=== PATIENT | female | born 1985 | race Caucasian/White ===

== ENCOUNTER 2016-06-09 16:36 | Emergency (ER) | payer OTHER ==
--- NOTE | 2016-06-09 19:00 | ED NURSING NOTES ---
Clinical Report - Nurses [facility] [address] [place] [address] 06/09/2016 16:36 Patient: MANAS HERNANDEZ TRIAGE Triage time 1720. Acuity: LEVEL 4. Chief Complaint: BOIL. Alert. No acute distress. (eating gummy bears). --17:30 Leslie Cody 17:25 06/09/16. BP: 150/96. HR: 108. RR: 18. O2 saturation: 100%. Temp: 98.3 F. Pain level now 03/09. --17:30 Leslie Cody. Weight: 68 kg. Height/Length: 64 inches. BMI: 25.8. --17:24 Leslie Cody. Medications None. --17:27 Leslie Cody. Allergies No Known Drug Allergy. --17:27 Leslie Cody. History Arrived by private vehicle. Historian: patient. Accompanied by family. Reported as (right ac). Onset. (3 days ago). ( shot up with meth, sts 2 weeks ago last use, in [facility]hab program). SOCIAL HX: Current every day light tobacco smoker, start date 2011 (cigarette)- less than 1/2 a pack per day. History of drug use: methamphetamines, marijuana. Recently used drugs days ago. (14). --17:30 Leslie Cody. PROBLEMS: Substance Abuse. --17:27 Leslie Cody. ADDITIONAL SURGERIES: Cholecystectomy. Dilatation & Curettage. Laparoscopy. --17:27 Leslie Cody. Interventions ID band on patient. To treatment room. --17:30 Leslie Cody. PHYSICAL ASSESSMENT Ambulatory to room. GENERAL / NEURO / PSYCH: Alert. She appears agitated. Oriented X 4. HEENT: Mucous membranes are pink. RESPIRATORY: Respirations not labored. Breath sounds within normal limits. CVS: Capillary refill less than 2 seconds. Pulses within normal limits. GI / : Abdomen nontender. SKIN: Skin is warm. Skin tenderness present. Increased warmth present. Erythema present. --17:31 Leslie Cody. NURSING PROGRESS NOTES 18:18 06/09/2016 Percocet (Oxycodone-Acetaminophen) PO 5/325 mg Tablets 2 tab given. Allergies verified, confirmed 5 rights and sedative warning given to the patient. --18:18 Leslie Cody 19:02 06/09/2016 Keflex (Cephalexin) PO 500 mg given. Allergies verified and confirmed 5 rights. --19:02 Leslie Cody 19:03 06/09/2016 Bactrim DS (Sulfamethoxazole-TMP DS) PO 1 tab given. Allergies verified and confirmed 5 rights. --19:03 Leslie Cody 19:18. Care transferred and report received. --19:18 Gael Bar R.N. 19:24. The patient is calm and resting quietly. RESPIRATORY: No respiratory distress. SKIN: Skin is warm and dry. Skin color within normal limits. --19:29 Gael Bar R.N. DISPOSITION / DISCHARGE Departure time: 19:26. Condition at departure: stable. No learning barriers present. Discharge instructions provided and reviewed with furniture dipper and the patient. Reviewed medication(s) side effects, precautions, dosing and course information. Prescription(s) given to the patient. Patient verbalized understanding. Written instructions provided in Pashto. The patient was discharged home and accompanied by furniture dipper. She left the Emergency Department ambulatory and via private vehicle. Occupational Therapy Technician driving. FALL RISK ASSESSMENT: Fall risk assessment completed. No fall risk identified. --19:28 Gael Bar R.N. 19:27 06/09/16. BP: 112/85. HR: 94. RR: 16. O2 saturation: 100% on room air. Pain level now: 11/07. --19:28 Gael Bar R.N. Locked/Released at 06/09/2016 19:29 by Gael Bar R.N.
--- NOTE | 2016-06-09 19:00 | ED ORDER SUMMARY ---
..... Patient: MANAS HERNANDEZ OrderSheet [facility] VisitID: [id number] [place] [address] 31y, F Registration Date/Time: 06/09/2016 ORDER SHEET Weight: 68.0 kg Allergies: No Known Drug Allergy GENERAL ORDERS: MEDICATION ORDERS: Percocet PO 2 tabs (HIGH ALERT MEDICATION, NOW) (18:13 06/09/2016 Padmini Garcia) [facility] Keflex PO 500 mg (NOW) (18:55 06/09/2016 Padmini Garcia) (19:02 [facility] Bactrim DS PO (Tablet 800-160 mg) 1 tab (NOW) (18:56 06/09/2016 Padmini Garcia) (19:03 [facility] IV FLUIDS: ORDER SHEET NOTES: [Electronically signed by Gael Bar R.N. (19:29 06/09/2016)] [Electronically signed by Ean Palmer Dr. (03:40 06/11/2016)] [Electronically locked/signed by Gael Bar R.N. (19:29 06/09/2016)]
--- NOTE | 2016-06-09 19:00 | ED NURSING NOTES ---
Clinical Report - Nurses [facility] [address] [place] [address] 06/09/2016 16:36 Patient: MANAS HERNANDEZ TRIAGE Triage time 1720. Acuity: LEVEL 4. Chief Complaint: BOIL. Alert. No acute distress. (eating gummy bears). --17:30 Leslie Cody 17:25 06/09/16. BP: 150/96. HR: 108. RR: 18. O2 saturation: 100%. Temp: 98.3 F. Pain level now 03/09. --17:30 Leslie Cody. Weight: 68 kg. Height/Length: 64 inches. BMI: 25.8. --17:24 Leslie Cody. Medications None. --17:27 Leslie Cody. Allergies No Known Drug Allergy. --17:27 Leslie Cody. History Arrived by private vehicle. Historian: patient. Accompanied by family. Reported as (right ac). Onset. (3 days ago). ( shot up with meth, sts 2 weeks ago last use, in [facility] based rehab program). SOCIAL HX: Current every day light tobacco smoker, start date 2011 (cigarette)- less than 1/2 a pack per day. History of drug use: methamphetamines, marijuana. Recently used drugs days ago. (14). --17:30 Leslie Cody. PROBLEMS: Substance Abuse. --17:27 Leslie Cody. ADDITIONAL SURGERIES: Cholecystectomy. Dilatation & Curettage. Laparoscopy. --17:27 Leslie Cody. Interventions ID band on patient. To treatment room. --17:30 Leslie Cody. PHYSICAL ASSESSMENT Ambulatory to room. GENERAL / NEURO / PSYCH: Alert. She appears agitated. Oriented X 4. HEENT: Mucous membranes are pink. RESPIRATORY: Respirations not labored. Breath sounds within normal limits. CVS: Capillary refill less than 2 seconds. Pulses within normal limits. GI / : Abdomen nontender. SKIN: Skin is warm. Skin tenderness present. Increased warmth present. Erythema present. --17:31 Leslie Cody. NURSING PROGRESS NOTES 18:18 06/09/2016 Percocet (Oxycodone-Acetaminophen) PO 5/325 mg Tablets 2 tab given. Allergies verified, confirmed 5 rights and sedative warning given to the patient. --18:18 Leslie Cody 19:02 06/09/2016 Keflex (Cephalexin) PO 500 mg given. Allergies verified and confirmed 5 rights. --19:02 Leslie Cody 19:03 06/09/2016 Bactrim DS (Sulfamethoxazole-TMP DS) PO 1 tab given. Allergies verified and confirmed 5 rights. --19:03 Leslie Cody 19:18. Care transferred and report received. --19:18 Gael Bar R.N. 19:24. The patient is calm and resting quietly. RESPIRATORY: No respiratory distress. SKIN: Skin is warm and dry. Skin color within normal limits. --19:29 Gael Bar R.N. DISPOSITION / DISCHARGE Departure time: 19:26. Condition at departure: stable. No learning barriers present. Discharge instructions provided and reviewed with daycare provider and the patient. Reviewed medication(s) side effects, precautions, dosing and course information. Prescription(s) given to the patient. Patient verbalized understanding. Written instructions provided in Latvian. The patient was discharged home and accompanied by daycare provider. She left the Emergency Department ambulatory and via private vehicle. Kelp Gatherer driving. FALL RISK ASSESSMENT: Fall risk assessment completed. No fall risk identified. --19:28 Gael Bar R.N. 19:27 06/09/16. BP: 112/85. HR: 94. RR: 16. O2 saturation: 100% on room air. Pain level now: 11/07. --19:28 Gael Bar R.N. Locked/Released at 06/09/2016 19:29 by Gael Bar R.N.
--- NOTE | 2016-06-09 19:00 | ED ORDER SUMMARY ---
..... Patient: MANAS HERNANDEZ OrderSheet [facility] VisitID: [id number] [place] [address] 31y, F Registration Date/Time: 06/09/2016 ORDER SHEET Weight: 68.0 kg Allergies: No Known Drug Allergy GENERAL ORDERS: MEDICATION ORDERS: Percocet PO 2 tabs (HIGH ALERT MEDICATION, NOW) (18:13 06/09/2016 Padmini Garcia) (18:[facility] Keflex PO 500 mg (NOW) (18:55 06/09/2016 Padmini Garcia) (19:02 [facility]) Bactrim DS PO (Tablet 800-160 mg) 1 tab (NOW) (18:56 06/09/2016 Padmini Garcia) (19:03 [facility]) IV FLUIDS: ORDER SHEET NOTES: [Electronically signed by Gael Bar R.N. (19:29 06/09/2016)] [Electronically signed by Ean Palmer Dr. (03:40 06/11/2016)] [Electronically locked/signed by Gael Bar R.N. (19:29 06/09/2016)]
--- NOTE | 2016-06-09 19:00 | ED CLINICAL REPORT ---
Clinical Report - Physicians/Mid Levels [facility] [address] [place] [address] 06/09/2016 16:36 Patient: MANAS HERNANDEZ Arrived- By private vehicle. Historian- patient. HISTORY OF PRESENT ILLNESS Chief Complaint: LESION. This started Past several days and is still present and worsening. It was gradual in onset and has been constant but is not gone now. It is described as painful. It has been located on the right upper extremity. A possible cause has been identified (IV drug use). No recent medication, insect bite or food exposure. Was not recently exposed to poison chan or poison oak. Similar symptoms previously: Several times. Recent medical care: Not recently seen/assessed. REVIEW OF SYSTEMS No fever, chills, nausea or vomiting. All systems otherwise negative, except as recorded above. PAST HISTORY Medications: None. Allergies: No Known Drug Allergy. SOCIAL HISTORY Smoker- current status unknown. History of occasional drug use: methamphetamines. No alcohol use. Is not a local resident. ADDITIONAL NOTES The nursing notes have been reviewed. PHYSICAL EXAM Vital Signs: 06/09/2016 17:25 BP: 150/96. HR: 108. RR: 18. O2 saturation: 100%. Temp: 98.3 F. Blood pressure normal. Oxygen saturation normal. Appearance: Alert. Oriented X3. No acute distress. Eyes: Pupils equal, round and reactive to light. Conjunctivae and eyelids normal. ENT: Ears normal. Nose normal. Pharynx normal. Neck: Neck supple. CVS: Normal heart rate and rhythm. Heart sounds normal. Respiratory: No respiratory distress. Breath sounds normal. Chest nontender. Abdomen: Nontender. No organomegaly. Skin: (moderate size abscess noted in the right antecubital fossa. Area of induration measures 9 cm at the widest diameter. Area of fluctuance in the middle of the area with small area of surrounding cellulitis that measures approximately 2 cm at the widest diameter. It is oval in shape. Patient also with paronychia to the lateral aspect of the left index finger. No signs of deeper infection. Patient is able to move all major joints without any significant discomfort. No crepitus. No signs of ascending lymphangitis. No bony other maladies. No foreign bodies. No active drainage or bleeding.). Neuro: Oriented X 3. No motor deficit. No sensory deficit. PROGRESS AND PROCEDURES Incision & Drainage of Abscess: The risks of the procedure, benefits and alternatives were explained. Consent was obtained. Skin cleansed with Betadine. The abscess was incised with a #11 surgical blade. A large amount of pus was drained. Cavity was irrigated with saline. Estimated blood loss: Less than 5 mL. ( patient tolerated procedure well. No complications. Bleeding controlled. Percocet use for analgesia. No anesthesia or required.). Incision & Drainage of Abscess #2: The abscess is located (ulnar aspect of the left index finger paronychia). The risks of the procedure, benefits and alternatives were explained. Skin cleansed with Betadine. The abscess was incised with a #11 surgical blade. A small amount of pus was drained. Cavity was irrigated with saline. ( Percocet use for analgesia. No anesthesia or required.). Course of Care: The patient is a pleasant 31-year-old female with past medical history significant for abscess and IV drug use. Patient has a moderate-sized abscess located in the right before meals area. Patient also has a paronychia on the left index finger. No signs of systemic involvement at this time. Patient is resting in bed in no acute distress. Vital signs are unremarkable. I discussion with patient in regards to draining of the abscess is here in the emergency department. Had discussion patient in regards to proper method for draining abscessesin the emergency department. Unfortunately I am unable to provide this service for the patient because of the location of the abscess. I discussion with patient because of important vascular structures noted in the antecubital fossa. Patient was agreeable to [place] of the fluctuant area and having it spontaneously drained. I discussion with patient in regards to possible complications from this procedure in addition to injuringimportant neurovascular structures. Informed verbal consent obtained. Patient was drained without any further complications or abnormalities. In addition to the abscess in the right antecubital fossa, and the left paronychia was also drained. The patient tolerated the procedure well. Symptoms improved after the drainage of both of these abscesses. Patient continues to be nontoxic and in no acute distress. And about as provided in the emergency department. Discussed the patient workup, diagnosis, home care, follow-up, and return precautions. All questions answered. The patient expressed understanding of these instructions and was agreeable to them. In addition to those questions, specifically had addressed with patient need for follow-up with general surgery as well aspossible reopening of the wound and further wound care. Disposition: Discharged. Condition: good. CLINICAL IMPRESSION 06/09/2016 17:25 BP: 150/96. HR: 108. RR: 18. O2 saturation: 100%. Temp: 98.3 F. Blood pressure normal. Oxygen saturation normal. Essential hypertension. Paronychia left index finger (acute). Cellulitis of the right elbow. Single abscess to the right upper extremity (AC area). INSTRUCTIONS Warnings: GENERAL WARNINGS: Return or contact your physician immediately if your condition worsens or changes unexpectedly, if not improving as expected, or if other problems arise. Specifically return if pain, vomiting, bleeding, breathing difficulty or fever. increased swelling, numbness, tingling, weakness, or other concerns. Your Current Medications: CONTINUE TAKING THE FOLLOWING MEDICATIONS: None*. Prescription Medications: Keflex 500 mg: take 1 capsule orally every 8 hours for 10 days. No refill. Substitution is permissible. (disp 30 caps) Bactrim DS 800 mg / 160 mg: take 1 tablet orally every 12 hours for 10 days. No refill. Substitution is permissible. (disp 20 tabs) Percocet 5 mg/325 mg: take 1 tablet orally every 6 hours as needed for pain. Dispense fifteen (15). No refill. Substitution is permissible. Follow-up: Return to the emergency department as needed. Screening today revealed the patient's blood pressure to be in the hypertensive range. The patient should follow up with a primary care provider for blood pressure management. Understanding of the discharge instructions verbalized by patient. Follow-up with: Alfred De La Rosa MD, General Surgeon, , [facility], [address] [place] [address], [id number] Follow up in three days. Reason for referral: recheck today's concerns. Summary of care provided to patient via paper. (Electronically signed by Ean Palmer Dr. 06/11/2016 3:40)
--- NOTE | 2016-06-11 03:41 | ED MED RECONCILIATION SUMMARY ---
Patient: MANAS HERNANDEZ Medication Reconciliation Report [facility] VisitID: [id number] [place] [address] 31y, F Registration Date/Time: 06/09/2016 Weight: 68.0 kg Height/Length: 64 in. BMI: 25.8 ALLERGIES: No Known Drug Allergy The patient's Home Medications are listed below: NONE. The source(s) of the original Home Medication information: Not obtained. The following Medications were given to the patient in the Emergency Department: Percocet [PO] PO 2 tab, administered: 06/09/2016 6:18:00 PM Keflex [PO] PO 500 mg, administered: 06/09/2016 7:02:00 PM Bactrim DS [PO] PO 1 tab, administered: 06/09/2016 7:03:00 PM The following Medications were prescribed to the patient: Keflex 500 mg: take 1 capsule orally every 8 hours for 10 days. No refill. Substitution is permissible.(disp 30 caps) -- Ean Palmer Dr. Bactrim DS 800 mg / 160 mg: take 1 tablet orally every 12 hours for 10 days. No refill. Substitution is permissible.(disp 20 tabs) -- Ean Palmer Dr. Percocet 5 mg/325 mg: take 1 tablet orally every 6 hours as needed for pain. Dispense fifteen (15). No refill. Substitution is permissible. -- Ean Palmer Dr.
--- NOTE | 2016-06-11 03:41 | ED MAR SUMMARY ---
..... Medication Administration Record [facility] [address] [place] [address] Patient: MANAS HERNANDEZ Visit ID: [id number] 31y, F Weight: 68.0 kg Height/Length: 64 in BMI: 25.8 ALLERGIES: No Known Drug Allergy Given 18:18 06/09/2016 Leslie Cody, Medication Administered: PERCOCET [PO] (OXYCODONE-ACETAMINOPHEN), Dose: 2 tab 5/325 mg Tablets PO. Medication Ordered: Percocet PO 2 tabs (HIGH ALERT MEDICATION, NOW). Given 19:02 06/09/2016 Leslie Cody, Medication Administered: KEFLEX [PO] (CEPHALEXIN), Dose: 500 mg PO. Medication Ordered: Keflex PO 500 mg (NOW). Given 19:03 06/09/2016 Leslie Cody, Medication Administered: BACTRIM DS [PO] (SULFAMETHOXAZOLE-TMP DS), Dose: 1 tab PO. Medication Ordered: Bactrim DS PO (Tablet 800-160 mg) 1 tab (NOW).
--- NOTE | 2016-06-11 03:41 | ED MED RECONCILIATION SUMMARY ---
Patient: MANAS HERNANDEZ Medication Reconciliation Report [facility] VisitID: [id number] [place] [address] 31y, F Registration Date/Time: 06/09/2016 Weight: 68.0 kg Height/Length: 64 in. BMI: 25.8 ALLERGIES: No Known Drug Allergy The patient's Home Medications are listed below: NONE. The source(s) of the original Home Medication information: Not obtained. The following Medications were given to the patient in the Emergency Department: Percocet [PO] PO 2 tab, administered: 06/09/2016 6:18:00 PM Keflex [PO] PO 500 mg, administered: 06/09/2016 7:02:00 PM Bactrim DS [PO] PO 1 tab, administered: 06/09/2016 7:03:00 PM The following Medications were prescribed to the patient: Keflex 500 mg: take 1 capsule orally every 8 hours for 10 days. No refill. Substitution is permissible.(disp 30 caps) -- Ean Palmer Dr. Bactrim DS 800 mg / 160 mg: take 1 tablet orally every 12 hours for 10 days. No refill. Substitution is permissible.(disp 20 tabs) -- Ean Palmer Dr. Percocet 5 mg/325 mg: take 1 tablet orally every 6 hours as needed for pain. Dispense fifteen (15). No refill. Substitution is permissible. -- Ean Palmer Dr.
--- NOTE | 2016-06-11 03:41 | ED DISCHARGE INSTRUCTIONS ---
Patient: MANAS HERNANDEZ General Instructions [facility] VisitID: [id number] [place] [address] 31y, F Registration Date/Time: 06/09/2016 06/09/2016 17:25 BP: 150/96. HR: 108. RR: 18. O2 saturation: 100%. Temp: 98.3 F. Blood pressure normal. Oxygen saturation normal. Essential hypertension. Paronychia left index finger (acute). Cellulitis of the right elbow. Single abscess to the right upper extremity (AC area). INSTRUCTIONS Warnings: GENERAL WARNINGS: Return or contact your physician immediately if your condition worsens or changes unexpectedly, if not improving as expected, or if other problems arise. Specifically return if pain, vomiting, bleeding, breathing difficulty or fever. increased swelling, numbness, tingling, weakness, or other concerns. Your Current Medications: CONTINUE TAKING THE FOLLOWING MEDICATIONS: None*. Prescription Medications: Keflex 500 mg: take 1 capsule orally every 8 hours for 10 days. No refill. Substitution is permissible. (disp 30 caps) Bactrim DS 800 mg / 160 mg: take 1 tablet orally every 12 hours for 10 days. No refill. Substitution is permissible. (disp 20 tabs) Percocet 5 mg/325 mg: take 1 tablet orally every 6 hours as needed for pain. Dispense fifteen (15). No refill. Substitution is permissible. Follow-up: Return to the emergency department as needed. Screening today revealed the patient's blood pressure to be in the hypertensive range. The patient should follow up with a primary care provider for blood pressure management. Understanding of the discharge instructions verbalized by patient. Follow-up with: Alfred De La Rosa MD, General Surgeon, , [facility], [address] [place] [id number] Follow up in three days. Reason for referral: recheck today's concerns. Summary of care provided to patient via paper. ADDITIONAL INFORMATION High Blood Pressure -- To Be Confirmed [No Tx] Your blood pressure was higher today than normal. Sometimes anxiety or pain can cause a temporary rise in blood pressure that later returns to normal. If your blood pressure is high on one measurement, this does not mean that you have hypertension (a chronic illness). However, you must have your blood pressure measured again within the next few days to find out if its still high. A normal blood pressure is 120/80 or less. The first (top) number is the "systolic" pressure. The second (bottom) number is the "diastolic" pressure. Hypertension exists when either the top number is 140 or higher, OR the bottom number is 90 or higher on repeated measurements. Blood pressure in the range of 120-140 (systolic) or 80-89 (diastolic) is considered "pre-hypertension". This means your are at risk for getting hypertension. You should have regular blood pressure checks to be sure your blood pressure is not rising. Home Care: Measure your blood pressure on 3 different days and write down the results. This can be done at your doctor's office or this facility. Some pharmacies and grocery stores offer automated blood pressure machines for your use. Follow Up: If your blood pressure is "high" (over 120/80) on 2 out of 3 days, you will need to follow up with your doctor for further evaluation and treatment. DO NOT PUT THIS OFF! Untreated high blood pressure increases the risk for heart attack, also known as acute myocardial infarction, or AMI, and stroke. It is a treatable condition. Get Prompt Medical Attention if any of the following occur: Chest pain or shortness of breath Severe headache Throbbing or rushing sound in the ears Nosebleed Sudden severe abdominal pain Extreme drowsiness, confusion or fainting Dizziness or vertigo (dizziness with spinning sensation) Weakness of an arm or leg or one side of the face Difficulty with speech or vision Paronychia, Finger Or Toe Paronychia is an infection alongside the fingernail or toenail. It usually occurs from an opening in the cuticle or an ingrown toenail which lets bacteria under the skin. If there is pus present, the infection will need to be drained. If the infection is early, antibiotic treatment alone may be all that you need. Healing will take about 12 weeks. Home care The following guidelines will help you care for your wound at home: Twice a day for the first three days, clean and soak the toe or finger as follows: Soak your foot or hand in a tub of warm water for five minutes. Or, hold your toe or finger under a faucet of warm running water for five minutes. Clean any remaining crust away with soap and water using a cotton-tipped applicator. Apply antibiotic ointment to the infected area. Change the dressing daily or whenever it becomes soiled. If you were prescribed antibiotics, take them as directed until they are all gone. If your infection is on a toe, wear comfortable shoes with a lot of toe room, or open-toe sandals, while your toe is healing. You may use acetaminophen or ibuprofen to control pain, unless another medicine was prescribed.If you have chronic liver or kidney disease or ever had a stomach ulcer or GI bleeding, talk with your doctor before using these medicines. Follow-up care Follow up with your doctor or this facility as explained by our staff. When to seek medical care Get prompt medical attention if any of the following occur: Increasing redness, pain or swelling of the finger or toe Red streaks in the skin leading away from the wound Pus or fluid drainage Fever of 100.4F (38C) or higher, or as directed by your health care provider Cephalexin Monohydrate Oral tablet What is this medicine? CEPHALEXIN (sef a DYLLAN in) is a cephalosporin antibiotic. It is used to treat certain kinds of bacterial infections It will not work for colds, flu, or other viral infections. How should I use this medicine? Take this medicine by mouth with a full glass of water. Follow the directions on the prescription label. This medicine can be taken with or without food. Take your medicine at regular intervals. Do not take your medicine more often than directed. Take all of your medicine as directed even if you think you are better. Do not skip doses or stop your medicine early. Talk to your radio dispatcher regarding the use of this medicine in children. While this drug may be prescribed for selected conditions, precautions do apply. What side effects may I notice from receiving this medicine? Side effects that you should report to your doctor or health spiritual care coordinator as soon as possible: allergic reactions like skin rash, itching or hives, swelling of the face, lips, or tongue breathing problems pain or trouble passing urine redness, blistering, peeling or loosening of the skin, including inside the mouth severe or watery diarrhea unusually weak or tired yellowing of the eyes, skin Side effects that usually do not require medical attention (report to your doctor or health spiritual care coordinator if they continue or are bothersome): gas or heartburn genital or anal irritation headache joint or muscle pain nausea, vomiting What may interact with this medicine? probenecid some other antibiotics What if I miss a dose? If you miss a dose, take it as soon as you can. If it is almost time for your next dose, take only that dose. Do not take double or extra doses. There should be at least 4 to 6 hours between doses. Where should I keep my medicine? Keep out of the reach of children. Store at room temperature between 59 and 86 degrees F (15 and 30 degrees C). Throw away any unused medicine after the expiration date. What should I tell my health care provider before I take this medicine? They need to know if you have any of these conditions: kidney disease stomach or intestine problems, especially colitis an unusual or allergic reaction to cephalexin, other cephalosporins, penicillins, other antibiotics, medicines, foods, dyes or preservatives or trying to get breast-feeding What should I watch for while using this medicine? Tell your doctor or health spiritual care coordinator if your symptoms do not begin to improve in a few days. Do not treat diarrhea with over the counter products. Contact your doctor if you have diarrhea that lasts more than 2 days or if it is severe and watery. If you have diabetes, you may get a false-positive result for sugar in your urine. Check with your doctor or health spiritual care coordinator. Sulfamethoxazole, Trimethoprim Oral tablet What is this medicine? SULFAMETHOXAZOLE; TRIMETHOPRIM or SMX-TMP (suhl fuh meth OK marlene zohl; trye METH oh prim) is a combination of a sulfonamide antibiotic and a second antibiotic, trimethoprim. It is used to treat or prevent certain kinds of bacterial infections. It will not work for colds, flu, or other viral infections. How should I use this medicine? Take this medicine by mouth with a full glass of water. Follow the directions on the prescription label. Take your medicine at regular intervals. Do not take it more often than directed. Do not skip doses or stop your medicine early. Talk to your radio dispatcher regarding the use of this medicine in children. Special care may be needed. This medicine has been used in children as young as 2 months of age. What side effects may I notice from receiving this medicine? Side effects that you should report to your doctor or health spiritual care coordinator as soon as possible: allergic reactions like skin rash or hives, swelling of the face, lips, or tongue breathing problems fever or chills, sore throat irregular heartbeat, chest pain joint or muscle pain pain or difficulty passing urine red pinpoint spots on skin redness, blistering, peeling or loosening of the skin, including inside the mouth unusual bleeding or bruising unusually weak or tired yellowing of the eyes or skin Side effects that usually do not require medical attention (report to your doctor or health spiritual care coordinator if they continue or are bothersome): diarrhea dizziness headache loss of appetite nausea, vomiting nervousness What may interact with this medicine? Do not take this medicine with any of the following medications: aminobenzoate potassium dofetilide metronidazole This medicine may also interact with the following medications: REBECA inhibitors like benazepril, enalapril, lisinopril, and ramipril cyclosporine digoxin diuretics indomethacin medicines for diabetes methenamine methotrexate phenytoin potassium supplements pyrimethamine sulfinpyrazone tricyclic antidepressants warfarin What if I miss a dose? If you miss a dose, take it as soon as you can. If it is almost time for your next dose, take only that dose. Do not take double or extra doses. Where should I keep my medicine? Keep out of the reach of children. Store at room temperature between 20 to 25 degrees C (68 to 77 degrees F). Protect from light. Throw away any unused medicine after the expiration date. What should I tell my health care provider before I take this medicine? They need to know if you have any of these conditions: anemia asthma being treated with anticonvulsants if you frequently drink alcohol containing drinks kidney disease liver disease low level of folic acid or [id number] dehydrogenase poor nutrition or malabsorption porphyria severe allergies thyroid disorder an unusual or allergic reaction to sulfamethoxazole, trimethoprim, sulfa drugs, other medicines, foods, dyes, or preservatives or trying to get breast-feeding What should I watch for while using this medicine? Tell your doctor or health spiritual care coordinator if your symptoms do not improve. Drink several glasses of water a day to reduce the risk of kidney problems. Do not treat diarrhea with over the counter products. Contact your doctor if you have diarrhea that lasts more than 2 days or if it is severe and watery. This medicine can make you more sensitive to the sun. Keep out of the sun. If you cannot avoid being in the sun, wear protective clothing and use a sunscreen. Do not use sun lamps or tanning beds/booths. Oxycodone Hydrochloride, Acetaminophen Oral tablet What is this medicine? ACETAMINOPHEN; OXYCODONE (a set a JOVAN lala fen; ox sergio MEZA done) is a pain reliever. It is used to treat mild to moderate pain. How should I use this medicine? Take this medicine by mouth with a full glass of water. Follow the directions on the prescription label. Take your medicine at regular intervals. Do not take your medicine more often than directed. Talk to your radio dispatcher regarding the use of this medicine in children. Special care may be needed. Patients over 65 years old may have a stronger reaction and need a smaller dose. What side effects may I notice from receiving this medicine? Side effects that you should report to your doctor or health spiritual care coordinator as soon as possible: allergic reactions like skin rash, itching or hives, swelling of the face, lips, or tongue breathing difficulties, wheezing confusion light headedness or fainting spells severe stomach pain yellowing of the skin or the whites of the eyes Side effects that usually do not require medical attention (report to your doctor or health spiritual care coordinator if they continue or are bothersome): dizziness drowsiness nausea vomiting What may interact with this medicine? alcohol antihistamines barbiturates like amobarbital, butalbital, butabarbital, methohexital, pentobarbital, phenobarbital, thiopental, and secobarbital benztropine drugs for bladder problems like solifenacin, trospium, oxybutynin, tolterodine, hyoscyamine, and methscopolamine drugs for breathing problems like ipratropium and tiotropium drugs for certain stomach or intestine problems like propantheline, homatropine methylbromide, glycopyrrolate, atropine, belladonna, and dicyclomine general anesthetics like etomidate, ketamine, nitrous oxide, propofol, desflurane, enflurane, halothane, isoflurane, and sevoflurane medicines for depression, anxiety, or psychotic disturbances medicines for sleep muscle relaxants naltrexone narcotic medicines (opiates) for pain phenothiazines like perphenazine, thioridazine, chlorpromazine, mesoridazine, fluphenazine, prochlorperazine, promazine, and trifluoperazine scopolamine tramadol trihexyphenidyl What if I miss a dose? If you miss a dose, take it as soon as you can. If it is almost time for your next dose, take only that dose. Do not take double or extra doses. Where should I keep my medicine? Keep out of the reach of children. This medicine can be abused. Keep your medicine in a safe place to protect it from theft. Do not share this medicine with anyone. Selling or giving away this medicine is dangerous and against the law. Store at room temperature between 20 and 25 degrees C (68 and 77 degrees F). Keep container tightly closed. Protect from light. This medicine may cause accidental overdose and if it is taken by other adults, children, or pets. Flush any unused medicine down the toilet to reduce the chance of harm. Do not use the medicine after the expiration date. What should I tell my health care provider before I take this medicine? They need to know if you have any of these conditions: brain tumor Crohn's disease, inflammatory bowel disease, or ulcerative colitis drink more than 3 alcohol containing drinks per day drug abuse or addiction head injury heart or circulation problems kidney disease or problems going to the bathroom liver disease lung disease, asthma, or breathing problems an unusual or allergic reaction to acetaminophen, oxycodone, other opioid analgesics, other medicines, foods, dyes, or preservatives or trying to get breast-feeding What should I watch for while using this medicine? Tell your doctor or health spiritual care coordinator if your pain does not go away, if it gets worse, or if you have new or a different type of pain. You may develop tolerance to the medicine. Tolerance means that you will need a higher dose of the medication for pain relief. Tolerance is normal and is expected if you take this medicine for a long time. Do not suddenly stop taking your medicine because you may develop a severe reaction. Your body becomes used to the medicine. This does NOT mean you are addicted. Addiction is a behavior related to getting and using a drug for a non-medical reason. If you have pain, you have a medical reason to take pain medicine. Your doctor will tell you how much medicine to take. If your doctor wants you to stop the medicine, the dose will be slowly lowered over time to avoid any side effects. You may get drowsy or dizzy. Do not drive, use machinery, or do anything that needs mental alertness until you know how this medicine affects you. Do not stand or sit up quickly, especially if you are an older patient. This reduces the risk of dizzy or fainting spells. Alcohol may interfere with the effect of this medicine. Avoid alcoholic drinks. There are different types of narcotic medicines (opiates) for pain. If you take more than one type at the same time, you may have more side effects. Give your health care provider a list of all medicines you use. Your doctor will tell you how much medicine to take. Do not take more medicine than directed. Call emergency for help if you have problems breathing. The medicine will cause constipation. Try to have a bowel movement at least every 2 to 3 days. If you do not have a bowel movement for 3 days, call your doctor or health spiritual care coordinator. Do not take Tylenol (acetaminophen) or medicines that have acetaminophen with this medicine. Too much acetaminophen can be very dangerous. Many nonprescription medicines contain acetaminophen. Always read the labels carefully to avoid taking more acetaminophen. You have been given the following additional information: Hypertension, To Be Confirmed Paronychia Cephalexin Monohydrate Oral tablet Sulfamethoxazole, Trimethoprim Oral tablet Oxycodone Hydrochloride, Acetaminophen Oral tablet (Electronically signed by Ean Palmer Dr. 06/11/2016 3:40)
--- NOTE | 2016-06-11 03:41 | ED MAR SUMMARY ---
..... Medication Administration Record [facility] [address] [place] [address] Patient: MANAS HERNANDEZ Visit ID: [id number] 31y, F Weight: 68.0 kg Height/Length: 64 in BMI: 25.8 ALLERGIES: No Known Drug Allergy Given 18:18 06/09/2016 Leslie Cody, Medication Administered: PERCOCET [PO] (OXYCODONE-ACETAMINOPHEN), Dose: 2 tab 5/325 mg Tablets PO. Medication Ordered: Percocet PO 2 tabs (HIGH ALERT MEDICATION, NOW). Given 19:02 06/09/2016 Leslie Cody, Medication Administered: KEFLEX [PO] (CEPHALEXIN), Dose: 500 mg PO. Medication Ordered: Keflex PO 500 mg (NOW). Given 19:03 06/09/2016 Leslie Cody, Medication Administered: BACTRIM DS [PO] (SULFAMETHOXAZOLE-TMP DS), Dose: 1 tab PO. Medication Ordered: Bactrim DS PO (Tablet 800-160 mg) 1 tab (NOW).
== END 2016-06-09 19:26 | disposition home or self-care (01) ==
LOC: ED SRH 16:36
DX: L03.012 Cellulitis of left finger (principal); L02.413 Cutaneous abscess of right upper limb; L03.113 Cellulitis of right upper limb; I10 Essential (primary) hypertension

== ENCOUNTER 2016-10-06 09:45 | Emergency (ER) | payer OTHER ==
--- NOTE | 2016-10-06 11:21 | ED CLINICAL REPORT ---
Clinical Report - Physicians/Mid Levels [facility] [address] [place] [address] 10/06/2016 9:49 Patient: MANAS HERNANDEZ Time Seen: 10:04; initial patient contact. Arrived- By private vehicle. Historian- patient. HISTORY OF PRESENT ILLNESS Chief Complaint: BOIL. This started 5 days ago and is still present and worsening. It was gradual in onset. It is described as painful. It has been located on the right upper extremity (AC fossa). It has been located on the left upper extremity (AC fossa). A cause has been identified (IVDA). No recent medication or insect bite. Similar symptoms previously: Several times. Recent medical care: Not recently seen/assessed. REVIEW OF SYSTEMS No fever, chills or enlarged lymph nodes. All systems otherwise negative, except as recorded above. PAST HISTORY Substance Abuse Abscess ADDITIONAL SURGERIES: Cholecystectomy. Dilatation & Curettage. Laparoscopy. SOCIAL HISTORY Current every day smoker. History of IV drug use: methamphetamines, marijuana. ADDITIONAL NOTES The nursing notes have been reviewed. PHYSICAL EXAM Vital Signs: 10/06/2016 10:02 BP: 128/94. HR: 105. RR: 16. O2 saturation: 98%. Temp: 98.9 F. Pain level now: 10/10. Have been reviewed. Hypertensive. Tachycardic. Respiratory rate normal. Temperature normal. Oxygen saturation normal. Appearance: Alert. Oriented X3. Skin: Cellulitis. Multiple medium abscesses with fluctuance, pointing and cellulitis to right arm and left arm. Neuro: Oriented X 3. No motor deficit. PROGRESS AND PROCEDURES Incision & Drainage of Abscess: Time: 11:25. Per protocol, time-out completed immediately before the procedure. The abscess is located in the left arm. The risks of the procedure, benefits and alternatives were explained. Parenteral Dilaudid administered. Anesthesia provided using 2% lidocaine. Skin cleansed with Hibiclens. The abscess was incised with a #11 surgical blade. A moderate amount of pus was drained. Cavity was irrigated with saline and packed with gauze. Sample obtained for cultures. A dressing was applied. Estimated blood loss: 5 mL. Incision & Drainage of Abscess #2: Time: 11:26. Per protocol, time-out completed immediately before the procedure. The abscess is located in the right arm. The risks of the procedure, benefits and alternatives were explained. Parenteral Dilaudid administered. Anesthesia provided using 2% lidocaine. Skin cleansed with Hibiclens. The abscess was incised with a #11 surgical blade. A moderate amount of pus was drained. Cavity was irrigated with saline and packed with gauze. Sample obtained for cultures. A dressing was applied. Estimated blood loss: 15 mL. Disposition: Discharged home in good and improved condition. Condition: good. CLINICAL IMPRESSION Multiple deep abscesses to the right upper extremity and left upper extremity with incision and drainage. INSTRUCTIONS Protect wound and keep wound area clean. Leave dressing in place until seen in follow-up. Prescription Medications: Tramadol 50 mg: take 1 orally every 6 hours as needed for pain. Do not take more than 8 tablets in a 24 hour period. Dispense twenty (20). No refills. Clindamycin 300 mg: take 1 capsule orally every 6 hours for 7 days. No refill. Follow-up: Screening today revealed the patient's blood pressure to be in the hypertensive range. The patient should follow up with a primary care provider for blood pressure management. Follow-up with: [facility], , , [address], [facility], [id number] Follow up in two for wound check and packing removal. Call for an appointment. (Electronically signed by Guillaume Salmeron Dr. 10/06/2016 11:27)
--- NOTE | 2016-10-06 11:21 | ED NURSING NOTES ---
Clinical Report - Nurses [facility] [address] [place] [address] 10/06/2016 9:49 Patient: MANAS HERNANDEZ TRIAGE Triage time 10:00 Oct 06 2016. Acuity: LEVEL 3. Chief Complaint: RIGHT UPPER EXTREMITY SWELLING and REDNESS. LEFT UPPER EXTREMITY SWELLING and REDNESS. Alert. FAITH COMA SCORE: [place] Coma Scale: 15- eyes open spontaneously (4); best verbal response- oriented x 4 (5); best motor response- obeys commands (6). --10:12 Gael Rodriguez R.N. 10:02 10/06/16. BP: 128/94. HR: 105. RR: 16. O2 saturation: 98% on room air. Temp: 98.9 F (oral). Pain level now: 03/09. Additional comments: LAC. --10:12 Gael Rodriguez R.N. Weight: 65.7 kg stated. Height/Length: 63 inches Per Patient. BMI: 25.7. --10:05 Gael Rodriguez R.N. Medications Albuterol Sulfate HFA Inhalation 2 puffs, as needed. --10:06 Gael Rodriguez R.N. The following entry was struck by Gael Rodriguez R.N., 10:07 (10/06/16) Reason - other. <<STRICKEN ENTRY-- None. --10:06 Gael Rodriguez R.N. --END STRIKE>>. Allergies No Known Drug Allergy. --10:06 Gael Rodriguez R.N. Medication/allergy information source: the patient. --10:12 Gael Rodriguez R.N. History Arrived by private vehicle. Historian: patient. Accompanied by family. Primary physician (none). ( Bilateral Abscesses in the antecubital regions. Pt states that she shoots up both heroin and meta, but hasn't shot up for the last 4 days (mostly because she was in skilled nursing).). No injury occurred. This occurred (about 5 days ago). She has had swelling to right axilla and left axilla and redness on right axilla and left axilla. Treatment INBOUND SALES REPRESENTATIVE: None. (hot warm wrap). PAST MEDICAL HX: Infections (MRSA hx). Tetanus status: unknown. Immunizations: status is unknown. Last normal menstrual period now. Denies current . SOCIAL HX: Heavy tobacco smoker- less than 1 pack per day. History of drug use: heroin, methamphetamines. No alcohol use. No infectious disease exposure. ABUSE ASSESSMENT: No report of abuse. FALL RISK ASSESSMENT: Fall risk assessment completed. No fall risk identified. NUTRITIONAL RISK ASSESSMENT: The nutritional risk assessment revealed no deficiencies. FUNCTIONAL ASSESSMENT: Functional assessment: no impairments noted. LEARNING NEEDS ASSESSMENT: The learning needs assessment revealed no barriers. SKIN INTEGRITY ASSESSMENT: Skin integrity risk assessment completed. No skin integrity risk identified. --10:12 Gael Rodriguez R.N. PROBLEMS: Hypertension. Paronychia. Abscess. Cellulitis. Substance Abuse. --10:08 Gael Rodriguez R.N. ADDITIONAL SURGERIES: Cholecystectomy. Dilatation & Curettage. Laparoscopy. --10:08 Gael Rodriguez R.N. Interventions ID band on patient. To treatment room. --10:12 Gael Rodriguez R.N. PHYSICAL ASSESSMENT Ambulatory to room. GENERAL / NEURO / PSYCH: Oriented X 4. Alert. EXTREMITIES: Extremities exhibit normal ROM. No upper extremity edema. Skin is non-tender on the extremities. SKIN: Skin intact. Skin is warm and dry. --10:13 Gael Rodriguez R.N. NURSING PROGRESS NOTES Reassurance given to the patient. Patient identifiers checked. Call light placed in reach. Side rails up x 1. Bed placed in lowest position. Brakes of bed on. Patient ready for evaluation- chart flagged and ED physician notified. --10:13 Gael Rodriguez R.N. 10:31 10/06/2016 Dilaudid (HYDROmorphone HCl PF) IM 1 mg given. Given in the right gluteus braxton. Allergies verified, confirmed 5 rights and sedative warning given to the patient and patient's agile developer. --10:31 Cris Moran R.N. I & D: Incision and Drainage of abscess performed by ED physician. Assisted by one tech. Preparation: Incision and Drainage tray set up. Total time of assist / procedure: 30 minutes. ( assisted DrCandida with procedure. both wounds cleaned with warm water after procedure bulky 4 x 4's applied and held with coban. Cultures sent to lab.). --11:27 Tabby Alves ER Tech1. DISPOSITION / DISCHARGE 11:25 10/06/16. BP: 130/89. HR: 103. RR: 16. O2 saturation: 98% on room air. Temp: 98.9 F (oral). Pain level now: 08/07. Additional comments: pain in both arms. --12:43 Gael Rodriguez R.N. Departure time: 1130. --12:43 Gael Rodriguez R.N. 11:30. Condition at departure: improved. No learning barriers present. Discharge instructions provided and reviewed with the patient. Reviewed medication(s) (prescription given to pt). Reviewed wound care instructions. Reviewed referral to family practice. Patient verbalized understanding. Written instructions provided in Korean. The patient was discharged by the physician. She was discharged home and accompanied by agile developer. She left the Emergency Department ambulatory and via private vehicle. Journeyman Pressman driving. --12:44 Gael Rodriguez R.N. Locked/Released at 10/06/2016 12:47 by Gael Rodriguez R.N.
--- NOTE | 2016-10-06 11:21 | ED ORDER SUMMARY ---
..... Patient: MANAS HERNANDEZ OrderSheet [facility] VisitID: [id number] [address] [place] [address] 31y, F Registration Date/Time: 10/06/2016 ORDER SHEET Weight: 65.7 kg (stated) Allergies: No Known Drug Allergy GENERAL ORDERS: I&D Tray (10:19 10/06/2016 Santiago Garcia) (10:29 LNations ER Tech1) Culture, Wound Deep (Arm) (...) (Right arm) Urgent (10:41 10/06/2016 Santiago Garcia) (Ack 10:50 KHoernita) (11:31 Ayla Quinonez.N.) Culture, Wound Deep (Arm) (...) (Left arm) Urgent (10:42 10/06/2016 Santiago Garcia) (Ack 10:50 Ok) (11:31 Ayla R.N.) MEDICATION ORDERS: Dilaudid IM 1 mg (HIGH ALERT MEDICATION, NOW) (10:19 10/06/2016 Santiago Garcia) (10:31 Blanche R.N.) IV FLUIDS: ORDER SHEET NOTES: [Electronically signed by Guillaume Salmeron Dr. (11:27 10/06/2016)] [Electronically signed by Gael Rodriguez R.N. (12:47 10/06/2016)] [Electronically locked/signed by Gael Rodriguez R.N. (12:47 10/06/2016)]
--- NOTE | 2016-10-06 11:21 | ED CLINICAL REPORT ---
Clinical Report - Physicians/Mid Levels [facility] [address] [place] [address] 10/06/2016 9:49 Patient: MANAS HERNANDEZ Time Seen: 10:04; initial patient contact. Arrived- By private vehicle. Historian- patient. HISTORY OF PRESENT ILLNESS Chief Complaint: BOIL. This started 5 days ago and is still present and worsening. It was gradual in onset. It is described as painful. It has been located on the right upper extremity (AC fossa). It has been located on the left upper extremity (AC fossa). A cause has been identified (IVDA). No recent medication or insect bite. Similar symptoms previously: Several times. Recent medical care: Not recently seen/assessed. REVIEW OF SYSTEMS No fever, chills or enlarged lymph nodes. All systems otherwise negative, except as recorded above. PAST HISTORY Substance Abuse Abscess ADDITIONAL SURGERIES: Cholecystectomy. Dilatation & Curettage. Laparoscopy. SOCIAL HISTORY Current every day smoker. History of IV drug use: methamphetamines, marijuana. ADDITIONAL NOTES The nursing notes have been reviewed. PHYSICAL EXAM Vital Signs: 10/06/2016 10:02 BP: 128/94. HR: 105. RR: 16. O2 saturation: 98%. Temp: 98.9 F. Pain level now: 10/10. Have been reviewed. Hypertensive. Tachycardic. Respiratory rate normal. Temperature normal. Oxygen saturation normal. Appearance: Alert. Oriented X3. Skin: Cellulitis. Multiple medium abscesses with fluctuance, pointing and cellulitis to right arm and left arm. Neuro: Oriented X 3. No motor deficit. PROGRESS AND PROCEDURES Incision & Drainage of Abscess: Time: 11:25. Per protocol, time-out completed immediately before the procedure. The abscess is located in the left arm. The risks of the procedure, benefits and alternatives were explained. Parenteral Dilaudid administered. Anesthesia provided using 2% lidocaine. Skin cleansed with Hibiclens. The abscess was incised with a #11 surgical blade. A moderate amount of pus was drained. Cavity was irrigated with saline and packed with gauze. Sample obtained for cultures. A dressing was applied. Estimated blood loss: 5 mL. Incision & Drainage of Abscess #2: Time: 11:26. Per protocol, time-out completed immediately before the procedure. The abscess is located in the right arm. The risks of the procedure, benefits and alternatives were explained. Parenteral Dilaudid administered. Anesthesia provided using 2% lidocaine. Skin cleansed with Hibiclens. The abscess was incised with a #11 surgical blade. A moderate amount of pus was drained. Cavity was irrigated with saline and packed with gauze. Sample obtained for cultures. A dressing was applied. Estimated blood loss: 15 mL. Disposition: Discharged home in good and improved condition. Condition: good. CLINICAL IMPRESSION Multiple deep abscesses to the right upper extremity and left upper extremity with incision and drainage. INSTRUCTIONS Protect wound and keep wound area clean. Leave dressing in place until seen in follow-up. Prescription Medications: Tramadol 50 mg: take 1 orally every 6 hours as needed for pain. Do not take more than 8 tablets in a 24 hour period. Dispense twenty (20). No refills. Clindamycin 300 mg: take 1 capsule orally every 6 hours for 7 days. No refill. Follow-up: Screening today revealed the patient's blood pressure to be in the hypertensive range. The patient should follow up with a primary care provider for blood pressure management. Follow-up with: [facility], , , [address], [facility], [id number] Follow up in two for wound check and packing removal. Call for an appointment. (Electronically signed by Guillaume Salmeron Dr. 10/06/2016 11:27)
--- NOTE | 2016-10-06 11:21 | ED NURSING NOTES ---
Clinical Report - Nurses [facility] [address] [place] [address] 10/06/2016 9:49 Patient: MANAS HERNANDEZ TRIAGE Triage time 10:00 Oct 06 2016. Acuity: LEVEL 3. Chief Complaint: RIGHT UPPER EXTREMITY SWELLING and REDNESS. LEFT UPPER EXTREMITY SWELLING and REDNESS. Alert. FAITH COMA SCORE: [place] Coma Scale: 15- eyes open spontaneously (4); best verbal response- oriented x 4 (5); best motor response- obeys commands (6). --10:12 Gael Rodriguez R.N. 10:02 10/06/16. BP: 128/94. HR: 105. RR: 16. O2 saturation: 98% on room air. Temp: 98.9 F (oral). Pain level now: 03/09. Additional comments: LAC. --10:12 Geal Rodriguez R.N. Weight: 65.7 kg stated. Height/Length: 63 inches Per Patient. BMI: 25.7. --10:05 Gael Rodriguez R.N. Medications Albuterol Sulfate HFA Inhalation 2 puffs, as needed. --10:06 Gael Rodriguez R.N. The following entry was struck by Gael Rodriguez R.N., 10:07 (10/06/16) Reason - other. <<STRICKEN ENTRY-- None. --10:06 Gael Rodriguez R.N. --END STRIKE>>. Allergies No Known Drug Allergy. --10:06 Gael Rodriguez R.N. Medication/allergy information source: the patient. --10:12 Gael Rodriguez R.N. History Arrived by private vehicle. Historian: patient. Accompanied by family. Primary physician (none). ( Bilateral Abscesses in the antecubital regions. Pt states that she shoots up both heroin and meta, but hasn't shot up for the last 4 days (mostly because she was in prison).). No injury occurred. This occurred (about 5 days ago). She has had swelling to right axilla and left axilla and redness on right axilla and left axilla. Treatment CARE COORDINATOR: None. (hot warm wrap). PAST MEDICAL HX: Infections (MRSA hx). Tetanus status: unknown. Immunizations: status is unknown. Last normal menstrual period now. Denies current . SOCIAL HX: Heavy tobacco smoker- less than 1 pack per day. History of drug use: heroin, methamphetamines. No alcohol use. No infectious disease exposure. ABUSE ASSESSMENT: No report of abuse. FALL RISK ASSESSMENT: Fall risk assessment completed. No fall risk identified. NUTRITIONAL RISK ASSESSMENT: The nutritional risk assessment revealed no deficiencies. FUNCTIONAL ASSESSMENT: Functional assessment: no impairments noted. LEARNING NEEDS ASSESSMENT: The learning needs assessment revealed no barriers. SKIN INTEGRITY ASSESSMENT: Skin integrity risk assessment completed. No skin integrity risk identified. --10:12 Gael Rodriguez R.N. PROBLEMS: Hypertension. Paronychia. Abscess. Cellulitis. Substance Abuse. --10:08 Gael Rodriguez R.N. ADDITIONAL SURGERIES: Cholecystectomy. Dilatation & Curettage. Laparoscopy. --10:08 Gael Rodriguez R.N. Interventions ID band on patient. To treatment room. --10:12 Gael Rodriguez R.N. PHYSICAL ASSESSMENT Ambulatory to room. GENERAL / NEURO / PSYCH: Oriented X 4. Alert. EXTREMITIES: Extremities exhibit normal ROM. No upper extremity edema. Skin is non-tender on the extremities. SKIN: Skin intact. Skin is warm and dry. --10:13 Gael Rdoriguez R.N. NURSING PROGRESS NOTES Reassurance given to the patient. Patient identifiers checked. Call light placed in reach. Side rails up x 1. Bed placed in lowest position. Brakes of bed on. Patient ready for evaluation- chart flagged and ED physician notified. --10:13 Gael Rodriguez R.N. 10:31 10/06/2016 Dilaudid (HYDROmorphone HCl PF) IM 1 mg given. Given in the right gluteus braxton. Allergies verified, confirmed 5 rights and sedative warning given to the patient and patient's room service associate. --10:31 Cris Moran R.N. I & D: Incision and Drainage of abscess performed by ED physician. Assisted by one tech. Preparation: Incision and Drainage tray set up. Total time of assist / procedure: 30 minutes. ( assisted DrCandida with procedure. both wounds cleaned with warm water after procedure bulky 4 x 4's applied and held with coban. Cultures sent to lab.). --11:27 Tabby Alves ER Tech1. DISPOSITION / DISCHARGE 11:25 10/06/16. BP: 130/89. HR: 103. RR: 16. O2 saturation: 98% on room air. Temp: 98.9 F (oral). Pain level now: 08/07. Additional comments: pain in both arms. --12:43 Gael Rodriguez R.N. Departure time: 1130. --12:43 Gael Rodriguez R.N. 11:30. Condition at departure: improved. No learning barriers present. Discharge instructions provided and reviewed with the patient. Reviewed medication(s) (prescription given to pt). Reviewed wound care instructions. Reviewed referral to family practice. Patient verbalized understanding. Written instructions provided in [place]ian. The patient was discharged by the physician. She was discharged home and accompanied by room service associate. She left the Emergency Department ambulatory and via private vehicle. Embosser Operator driving. --12:44 Gael Rodriguez R.N. Locked/Released at 10/06/2016 12:47 by Gael Rodriguez R.N.
--- NOTE | 2016-10-06 11:21 | ED ORDER SUMMARY ---
..... Patient: MANAS HERNANDEZ OrderSheet [facility] VisitID: [id number] [address] [place] [address] 31y, F Registration Date/Time: 10/06/2016 ORDER SHEET Weight: 65.7 kg (stated) Allergies: No Known Drug Allergy GENERAL ORDERS: I&D Tray (10:19 10/06/2016 Santiago Garcia) (10:29 LNations ER Tech1) Culture, Wound Deep (Arm) (...) (Right arm) Urgent (10:41 10/06/2016 Santiago Garcia) (Ack 10:50 KHoernita) (11:31 Ayla Quinonez.N.) Culture, Wound Deep (Arm) (...) (Left arm) Urgent (10:42 10/06/2016 Santiago Garcia) (Ack 10:50 Ok) (11:31 Ayla R.N.) MEDICATION ORDERS: Dilaudid IM 1 mg (HIGH ALERT MEDICATION, NOW) (10:19 10/06/2016 Santiago Garcia) (10:31 Blanche R.N.) IV FLUIDS: ORDER SHEET NOTES: [Electronically signed by Guillaume Salmeron Dr. (11:27 10/06/2016)] [Electronically signed by Gael Rodriguez R.N. (12:47 10/06/2016)] [Electronically locked/signed by Gael Rodriguez R.N. (12:47 10/06/2016)]
--- NOTE | 2016-10-06 12:47 | ED MED RECONCILIATION SUMMARY ---
Patient: MANAS HERNANDEZ Medication Reconciliation Report [facility] VisitID: [id number] [address] [place] [address] 31y, F Registration Date/Time: 10/06/2016 Weight: 65.7 kg Height/Length: 63 in. BMI: 25.7 ALLERGIES: No Known Drug Allergy The patient's Home Medications are listed below: THE FOLLOWING MEDICATIONS NEED TO BE RECONCILED: Albuterol Sulfate HFA Inhalation 2 puffs The source(s) of the original Home Medication information: patient The following Medications were given to the patient in the Emergency Department: Dilaudid [IM] IM 1 mg, administered: 10/06/2016 10:31:00 AM The following Medications were prescribed to the patient: Tramadol 50 mg: take 1 orally every 6 hours as needed for pain. Do not take more than 8 tablets in a 24 hour period. Dispense twenty (20). No refills. -- Giullaume Salmeron Dr. Clindamycin 300 mg: take 1 capsule orally every 6 hours for 7 days. No refill. -- Guillaume Salmeron Dr.
--- NOTE | 2016-10-06 12:47 | ED MED RECONCILIATION SUMMARY ---
Patient: MANAS HERNANDEZ Medication Reconciliation Report [facility] VisitID: [id number] [address] [place] [address] 31y, F Registration Date/Time: 10/06/2016 Weight: 65.7 kg Height/Length: 63 in. BMI: 25.7 ALLERGIES: No Known Drug Allergy The patient's Home Medications are listed below: THE FOLLOWING MEDICATIONS NEED TO BE RECONCILED: Albuterol Sulfate HFA Inhalation 2 puffs The source(s) of the original Home Medication information: patient The following Medications were given to the patient in the Emergency Department: Dilaudid [IM] IM 1 mg, administered: 10/06/2016 10:31:00 AM The following Medications were prescribed to the patient: Tramadol 50 mg: take 1 orally every 6 hours as needed for pain. Do not take more than 8 tablets in a 24 hour period. Dispense twenty (20). No refills. -- Guillaume Salmeron Dr. Clindamycin 300 mg: take 1 capsule orally every 6 hours for 7 days. No refill. -- Guillaume Salmeron Dr.
--- NOTE | 2016-10-06 12:47 | ED MAR SUMMARY ---
..... Medication Administration Record [facility] [address] [place] [address] Patient: MANAS HERNANDEZ Visit ID: [id number] 31y, F Weight: 65.7 kg Height/Length: 63 in BMI: 25.7 ALLERGIES: No Known Drug Allergy Given 10:31 10/06/2016 Cris Moran R.N. Medication Administered: DILAUDID [IM] (HYDROMORPHONE HCL PF), Dose: 1 mg IM. Medication Ordered: Dilaudid IM 1 mg (HIGH ALERT MEDICATION, NOW).
--- NOTE | 2016-10-06 12:47 | ED MAR SUMMARY ---
..... Medication Administration Record [facility] [address] [place] [address] Patient: MANAS HERNANDEZ Visit ID: [id number] 31y, F Weight: 65.7 kg Height/Length: 63 in BMI: 25.7 ALLERGIES: No Known Drug Allergy Given 10:31 10/06/2016 Cris Moran R.N. Medication Administered: DILAUDID [IM] (HYDROMORPHONE HCL PF), Dose: 1 mg IM. Medication Ordered: Dilaudid IM 1 mg (HIGH ALERT MEDICATION, NOW).
--- NOTE | 2016-10-06 12:47 | ED DISCHARGE INSTRUCTIONS ---
Patient: MANAS HERNANDEZ General Instructions [facility] VisitID: [id number] [address] [place] [address] 31y, F Registration Date/Time: 10/06/2016 Multiple deep abscesses to the right upper extremity and left upper extremity with incision and drainage. INSTRUCTIONS Protect wound and keep wound area clean. Leave dressing in place until seen in follow-up. Prescription Medications: Tramadol 50 mg: take 1 orally every 6 hours as needed for pain. Do not take more than 8 tablets in a 24 hour period. Dispense twenty (20). No refills. Clindamycin 300 mg: take 1 capsule orally every 6 hours for 7 days. No refill. Follow-up: Screening today revealed the patient's blood pressure to be in the hypertensive range. The patient should follow up with a primary care provider for blood pressure management. Follow-up with: [facility], , , [address], , [place], [id number] Follow up in two for wound check and packing removal. Call for an appointment. ADDITIONAL INFORMATION Abscess [Incision & Drainage] An abscess (sometimes called a boil) occurs when bacteria get trapped under the skin and begin to grow. Pus forms inside the abscess as the body responds to the bacteria. An abscess can occur with an insect bite, ingrown hair, blocked oil gland, pimple, cyst, or puncture wound. Treatment of your abscess has required an incision to drain the pus. If the abscess pocket was large, a gauze packing may have been inserted. This will need to be removed and possibly replaced on your next visit. Antibiotics are not required in the treatment of a simple abscess, unless the infection is spreading into the skin around the wound (known as cellulitis). Healing of the wound will take about one to two weeks depending on the size of the abscess. Healthy tissue will grow from the bottom and sides of the opening until it seals over. Home Care: The wound may drain for the first two days. Cover the wound with a clean dry dressing. If the dressing becomes soaked with blood or pus, change it. If a gauze packing was placed inside the abscess cavity, you may be advised to remove it yourself. You may do this in the shower. Once the packing is removed, you should wash the area in the shower or bath 3 to 4 times a day, until the skin opening has closed. If you were prescribed antibiotics, take them as directed until they are all gone. You may use acetaminophen (Tylenol) or ibuprofen (Motrin, Advil) to control pain, unless another pain medicine was prescribed. [ NOTE: If you have liver disease or ever had a stomach ulcer, talk with your doctor before using these medicines.] Follow Up with your doctor as advised by our staff. If a gauze packing was inserted in your wound, it should be removed in 1-2 days. Check your wound every day for the signs of worsening infection listed below. Get Prompt Medical Attention if any of the following occur: Increasing redness or swelling Red streaks in the skin leading away from the wound Increasing local pain or swelling Continued pus draining from the wound two days after treatment Fever of 100.4F (38C) or higher, or as directed by your healthcare provider Tramadol Hydrochloride Oral tablet What is this medicine? TRAMADOL (TRA ma dole) is a pain reliever. It is used to treat moderate to severe pain in adults. How should I use this medicine? Take this medicine by mouth with a full glass of water. Follow the directions on the prescription label. If the medicine upsets your stomach, take it with food or milk. Do not take more medicine than you are told to take. Talk to your crown wheel assembler regarding the use of this medicine in children. Special care may be needed. What side effects may I notice from receiving this medicine? Side effects that you should report to your doctor or health resident care manager rn as soon as possible: allergic reactions like skin rash, itching or hives, swelling of the face, lips, or tongue breathing difficulties, wheezing confusion itching light headedness or fainting spells redness, blistering, peeling or loosening of the skin, including inside the mouth seizures Side effects that usually do not require medical attention (report to your doctor or health resident care manager rn if they continue or are bothersome): constipation dizziness drowsiness headache nausea, vomiting What may interact with this medicine? Do not take this medicine with any of the following medications: MAOIs like Carbex, Eldepryl, Marplan, Nardil, and Parnate This medicine may also interact with the following medications: alcohol or medicines that contain alcohol antihistamines benzodiazepines bupropion carbamazepine or oxcarbazepine clozapine cyclobenzaprine digoxin furazolidone linezolid medicines for depression, anxiety, or psychotic disturbances medicines for migraine headache like almotriptan, eletriptan, frovatriptan, naratriptan, rizatriptan, sumatriptan, zolmitriptan medicines for pain like pentazocine, buprenorphine, butorphanol, meperidine, nalbuphine, and propoxyphene medicines for sleep muscle relaxants naltrexone phenobarbital phenothiazines like perphenazine, thioridazine, chlorpromazine, mesoridazine, fluphenazine, prochlorperazine, promazine, and trifluoperazine procarbazine warfarin What if I miss a dose? If you miss a dose, take it as soon as you can. If it is almost time for your next dose, take only that dose. Do not take double or extra doses. Where should I keep my medicine? Keep out of the reach of children. Store at room temperature between 15 and 30 degrees C (59 and 86 degrees F). Keep container tightly closed. Throw away any unused medicine after the expiration date. What should I tell my health care provider before I take this medicine? They need to know if you have any of these conditions: brain tumor depression drug abuse or addiction head injury if you frequently drink alcohol containing drinks kidney disease or trouble passing urine liver disease lung disease, asthma, or breathing problems seizures or epilepsy suicidal thoughts, plans, or attempt; a previous suicide attempt by you or a family member an unusual or allergic reaction to tramadol, codeine, other medicines, foods, dyes, or preservatives or trying to get breast-feeding What should I watch for while using this medicine? Tell your doctor or health resident care manager rn if your pain does not go away, if it gets worse, or if you have new or a different type of pain. You may develop tolerance to the medicine. Tolerance means that you will need a higher dose of the medicine for pain relief. Tolerance is normal and is expected if you take this medicine for a long time. Do not suddenly stop taking your medicine because you may develop a severe reaction. Your body becomes used to the medicine. This does NOT mean you are addicted. Addiction is a behavior related to getting and using a drug for a non-medical reason. If you have pain, you have a medical reason to take pain medicine. Your doctor will tell you how much medicine to take. If your doctor wants you to stop the medicine, the dose will be slowly lowered over time to avoid any side effects. You may get drowsy or dizzy. Do not drive, use machinery, or do anything that needs mental alertness until you know how this medicine affects you. Do not stand or sit up quickly, especially if you are an older patient. This reduces the risk of dizzy or fainting spells. Alcohol can increase or decrease the effects of this medicine. Avoid alcoholic drinks. You may have constipation. Try to have a bowel movement at least every 2 to 3 days. If you do not have a bowel movement for 3 days, call your doctor or health resident care manager rn. Your mouth may get dry. Chewing sugarless gum or sucking hard candy, and drinking plenty of water may help. Contact your doctor if the problem does not go away or is severe. Clindamycin Hydrochloride Oral capsule What is this medicine? CLINDAMYCIN (MANISHIN da HORACIO sin) is a lincosamide antibiotic. It is used to treat certain kinds of bacterial infections. It will not work for colds, flu, or other viral infections. How should I use this medicine? Take this medicine by mouth with a full glass of water. Follow the directions on the prescription label. You can take this medicine with food or on an empty stomach. If the medicine upsets your stomach, take it with food. Take your medicine at regular intervals. Do not take your medicine more often than directed. Take all of your medicine as directed even if you think your are better. Do not skip doses or stop your medicine early. Talk to your crown wheel assembler regarding the use of this medicine in children. Special care may be needed. What side effects may I notice from receiving this medicine? Side effects that you should report to your doctor or health resident care manager rn as soon as possible: allergic reactions like skin rash, itching or hives, swelling of the face, lips, or tongue dark urine pain on swallowing redness, blistering, peeling or loosening of the skin, including inside the mouth unusual bleeding or bruising unusually weak or tired yellowing of eyes or skin Side effects that usually do not require medical attention (report to your doctor or health resident care manager rn if they continue or are bothersome): diarrhea itching in the rectal or genital area joint pain nausea, vomiting stomach pain What may interact with this medicine? chloramphenicol erythromycin kaolin products What if I miss a dose? If you miss a dose, take it as soon as you can. If it is almost time for your next dose, take only that dose. Do not take double or extra doses. Where should I keep my medicine? Keep out of the reach of children. Store at room temperature between 20 and 25 degrees C (68 and 77 degrees F). Throw away any unused medicine after the expiration date. What should I tell my health care provider before I take this medicine? They need to know if you have any of these conditions: kidney disease liver disease stomach problems like colitis an unusual or allergic reaction to clindamycin, lincomycin, or other medicines, foods, dyes like tartrazine or preservatives or trying to get breast-feeding What should I watch for while using this medicine? Tell your doctor or healthcare professional if your symptoms do not start to get better or if they get worse. Do not treat diarrhea with over the counter products. Contact your doctor if you have diarrhea that lasts more than 2 days or if it is severe and watery. You have been given the following additional information: Abscess, Incision And Drainage Tramadol Hydrochloride Oral tablet Clindamycin Hydrochloride Oral capsule (Electronically signed by Guillaume Salmeron Dr. 10/06/2016 11:27)
--- NOTE | 2016-10-06 12:47 | ED DISCHARGE INSTRUCTIONS ---
Patient: MANAS HERNANDEZ General Instructions [facility] VisitID: [id number] [address] [place] [address] 31y, F Registration Date/Time: 10/06/2016 Multiple deep abscesses to the right upper extremity and left upper extremity with incision and drainage. INSTRUCTIONS Protect wound and keep wound area clean. Leave dressing in place until seen in follow-up. Prescription Medications: Tramadol 50 mg: take 1 orally every 6 hours as needed for pain. Do not take more than 8 tablets in a 24 hour period. Dispense twenty (20). No refills. Clindamycin 300 mg: take 1 capsule orally every 6 hours for 7 days. No refill. Follow-up: Screening today revealed the patient's blood pressure to be in the hypertensive range. The patient should follow up with a primary care provider for blood pressure management. Follow-up with: [facility], , , [address], , [place], [id number] Follow up in two for wound check and packing removal. Call for an appointment. ADDITIONAL INFORMATION Abscess [Incision & Drainage] An abscess (sometimes called a boil) occurs when bacteria get trapped under the skin and begin to grow. Pus forms inside the abscess as the body responds to the bacteria. An abscess can occur with an insect bite, ingrown hair, blocked oil gland, pimple, cyst, or puncture wound. Treatment of your abscess has required an incision to drain the pus. If the abscess pocket was large, a gauze packing may have been inserted. This will need to be removed and possibly replaced on your next visit. Antibiotics are not required in the treatment of a simple abscess, unless the infection is spreading into the skin around the wound (known as cellulitis). Healing of the wound will take about one to two weeks depending on the size of the abscess. Healthy tissue will grow from the bottom and sides of the opening until it seals over. Home Care: The wound may drain for the first two days. Cover the wound with a clean dry dressing. If the dressing becomes soaked with blood or pus, change it. If a gauze packing was placed inside the abscess cavity, you may be advised to remove it yourself. You may do this in the shower. Once the packing is removed, you should wash the area in the shower or bath 3 to 4 times a day, until the skin opening has closed. If you were prescribed antibiotics, take them as directed until they are all gone. You may use acetaminophen (Tylenol) or ibuprofen (Motrin, Advil) to control pain, unless another pain medicine was prescribed. [ NOTE: If you have liver disease or ever had a stomach ulcer, talk with your doctor before using these medicines.] Follow Up with your doctor as advised by our staff. If a gauze packing was inserted in your wound, it should be removed in 1-2 days. Check your wound every day for the signs of worsening infection listed below. Get Prompt Medical Attention if any of the following occur: Increasing redness or swelling Red streaks in the skin leading away from the wound Increasing local pain or swelling Continued pus draining from the wound two days after treatment Fever of 100.4F (38C) or higher, or as directed by your healthcare provider Tramadol Hydrochloride Oral tablet What is this medicine? TRAMADOL (TRA ma dole) is a pain reliever. It is used to treat moderate to severe pain in adults. How should I use this medicine? Take this medicine by mouth with a full glass of water. Follow the directions on the prescription label. If the medicine upsets your stomach, take it with food or milk. Do not take more medicine than you are told to take. Talk to your food order expediter regarding the use of this medicine in children. Special care may be needed. What side effects may I notice from receiving this medicine? Side effects that you should report to your doctor or health career discovery teacher as soon as possible: allergic reactions like skin rash, itching or hives, swelling of the face, lips, or tongue breathing difficulties, wheezing confusion itching light headedness or fainting spells redness, blistering, peeling or loosening of the skin, including inside the mouth seizures Side effects that usually do not require medical attention (report to your doctor or health career discovery teacher if they continue or are bothersome): constipation dizziness drowsiness headache nausea, vomiting What may interact with this medicine? Do not take this medicine with any of the following medications: MAOIs like Carbex, Eldepryl, Marplan, Nardil, and Parnate This medicine may also interact with the following medications: alcohol or medicines that contain alcohol antihistamines benzodiazepines bupropion carbamazepine or oxcarbazepine clozapine cyclobenzaprine digoxin furazolidone linezolid medicines for depression, anxiety, or psychotic disturbances medicines for migraine headache like almotriptan, eletriptan, frovatriptan, naratriptan, rizatriptan, sumatriptan, zolmitriptan medicines for pain like pentazocine, buprenorphine, butorphanol, meperidine, nalbuphine, and propoxyphene medicines for sleep muscle relaxants naltrexone phenobarbital phenothiazines like perphenazine, thioridazine, chlorpromazine, mesoridazine, fluphenazine, prochlorperazine, promazine, and trifluoperazine procarbazine warfarin What if I miss a dose? If you miss a dose, take it as soon as you can. If it is almost time for your next dose, take only that dose. Do not take double or extra doses. Where should I keep my medicine? Keep out of the reach of children. Store at room temperature between 15 and 30 degrees C (59 and 86 degrees F). Keep container tightly closed. Throw away any unused medicine after the expiration date. What should I tell my health care provider before I take this medicine? They need to know if you have any of these conditions: brain tumor depression drug abuse or addiction head injury if you frequently drink alcohol containing drinks kidney disease or trouble passing urine liver disease lung disease, asthma, or breathing problems seizures or epilepsy suicidal thoughts, plans, or attempt; a previous suicide attempt by you or a family member an unusual or allergic reaction to tramadol, codeine, other medicines, foods, dyes, or preservatives or trying to get breast-feeding What should I watch for while using this medicine? Tell your doctor or health career discovery teacher if your pain does not go away, if it gets worse, or if you have new or a different type of pain. You may develop tolerance to the medicine. Tolerance means that you will need a higher dose of the medicine for pain relief. Tolerance is normal and is expected if you take this medicine for a long time. Do not suddenly stop taking your medicine because you may develop a severe reaction. Your body becomes used to the medicine. This does NOT mean you are addicted. Addiction is a behavior related to getting and using a drug for a non-medical reason. If you have pain, you have a medical reason to take pain medicine. Your doctor will tell you how much medicine to take. If your doctor wants you to stop the medicine, the dose will be slowly lowered over time to avoid any side effects. You may get drowsy or dizzy. Do not drive, use machinery, or do anything that needs mental alertness until you know how this medicine affects you. Do not stand or sit up quickly, especially if you are an older patient. This reduces the risk of dizzy or fainting spells. Alcohol can increase or decrease the effects of this medicine. Avoid alcoholic drinks. You may have constipation. Try to have a bowel movement at least every 2 to 3 days. If you do not have a bowel movement for 3 days, call your doctor or health career discovery teacher. Your mouth may get dry. Chewing sugarless gum or sucking hard candy, and drinking plenty of water may help. Contact your doctor if the problem does not go away or is severe. Clindamycin Hydrochloride Oral capsule What is this medicine? CLINDAMYCIN (MANISHIN da HORACIO sin) is a lincosamide antibiotic. It is used to treat certain kinds of bacterial infections. It will not work for colds, flu, or other viral infections. How should I use this medicine? Take this medicine by mouth with a full glass of water. Follow the directions on the prescription label. You can take this medicine with food or on an empty stomach. If the medicine upsets your stomach, take it with food. Take your medicine at regular intervals. Do not take your medicine more often than directed. Take all of your medicine as directed even if you think your are better. Do not skip doses or stop your medicine early. Talk to your food order expediter regarding the use of this medicine in children. Special care may be needed. What side effects may I notice from receiving this medicine? Side effects that you should report to your doctor or health career discovery teacher as soon as possible: allergic reactions like skin rash, itching or hives, swelling of the face, lips, or tongue dark urine pain on swallowing redness, blistering, peeling or loosening of the skin, including inside the mouth unusual bleeding or bruising unusually weak or tired yellowing of eyes or skin Side effects that usually do not require medical attention (report to your doctor or health career discovery teacher if they continue or are bothersome): diarrhea itching in the rectal or genital area joint pain nausea, vomiting stomach pain What may interact with this medicine? chloramphenicol erythromycin kaolin products What if I miss a dose? If you miss a dose, take it as soon as you can. If it is almost time for your next dose, take only that dose. Do not take double or extra doses. Where should I keep my medicine? Keep out of the reach of children. Store at room temperature between 20 and 25 degrees C (68 and 77 degrees F). Throw away any unused medicine after the expiration date. What should I tell my health care provider before I take this medicine? They need to know if you have any of these conditions: kidney disease liver disease stomach problems like colitis an unusual or allergic reaction to clindamycin, lincomycin, or other medicines, foods, dyes like tartrazine or preservatives or trying to get breast-feeding What should I watch for while using this medicine? Tell your doctor or healthcare professional if your symptoms do not start to get better or if they get worse. Do not treat diarrhea with over the counter products. Contact your doctor if you have diarrhea that lasts more than 2 days or if it is severe and watery. You have been given the following additional information: Abscess, Incision And Drainage Tramadol Hydrochloride Oral tablet Clindamycin Hydrochloride Oral capsule (Electronically signed by Guillaume Salmeron Dr. 10/06/2016 11:27)
== END 2016-10-06 11:30 | disposition home or self-care (01) ==
LOC: ED SRH 09:45
DX: L02.413 Cutaneous abscess of right upper limb (principal); L02.414 Cutaneous abscess of left upper limb; F17.200 Nicotine dependence, unspecified, uncomplicated
CPT/HCPCS: 90070; 90131; 90309; 90470; 91672